=== PATIENT | male | born 1955 | race Caucasian/White ===

== ENCOUNTER 2018-09-25 07:19 | Emergency (ER) | payer BC ==
[~2018-09-25] VITALS: Ht 177.8 cm; Wt 109.0 kg
[2018-09-25 07:24] VITALS: BP 166/87
[2018-09-25] MEDS ORDERED: dexamethasone 4mg/ml inj IM ONE (07:40)
== END 2018-09-25 07:53 | disposition home or self-care (01) ==
LOC: ER 07:19
DX: L50.8 Other urticaria (principal); Z88.0 Allergy status to penicillin
CPT/HCPCS: 96372; 99283; J1100